=== PATIENT | female | born 1970 | race Caucasian/White ===

== ENCOUNTER → 2022-11-24 14:43 | Outpatient (BNVA) | payer OTHER, SELFPAY | PROVIDERS: PCP Internal Medicine; Visit Provider Urology | DX: Z13.89 Encounter for screening for other disorder (principal) ==

== ENCOUNTER 2023-02-26 08:26 | Day surgery (SDC) | payer OTHER, SELFPAY ==
[2023-02-26] VITALS (25 sets, daily range): BP systolic 92–133; BP diastolic 63–88; PULSE 45–79; RESP 14–20; TEMP 36.2–36.9; O2SAT 96–100; BMI 19.1
--- NOTE | ~2023-02-26 | FL_ITS ---
EXAMINATION: XR FLUOROSCOPY WITH IMAGES CLINICAL INFORMATION: Bilateral stones. COMPARISON: None available. TECHNIQUE: Fluoroscopy Supervised By: Dr. Romero. Fluoroscopy Time: 29.3 seconds. Cumulative Dose: 4.47 mGy. DAP: Gycm2. Images: 2. FINDINGS: Images from bilateral retrograde exam. Right renal collecting system is normal without hydronephrosis. There is a small filling defect seen in the right UPJ region. It is uncertain whether this represents a air bubble represent a stone. Images of the left renal collecting system demonstrate no calyceal dilatation. There may be mild left renal pelvis dilatation. FL/FL guidance in OR IMPRESSION: Fluoroscopy guidance for bilateral retrograde exam
[2023-02-26] MEDS: Lactated Ringers 1,000 ML 100 ML IVCONT (09:03)
--- NOTE | 2023-02-26 09:30 | P.HPSUR_ITS ---
Pre-Procedural Eval Section A Date of Service: 02/26/23 The patient is an INPATIENT: No Changes since office visit: No Cold of Flu in the past 2 weeks, No New Medical Problems, No Changes in Medication and No Patient answered all questions The History & Physical has been completed within 30 days and I have reviewed it.: No Section B Chief Complaint: Calculus of kidney Relevant Social History: None Present Medications: see Short Stay Collaborative assessment Medical History: Significant History History of Previous Operations: Relevant previous surgery/procedure and date(s) Allergies: Allergies Allergy/AdvReac Type Severity Reaction Status Date / Time metaxalone [From SKELAXIN] Allergy Intermediate CHEST Verified 02/22/23 11:10 TIGHTENING morphine [MORPHINE] Allergy Intermediate RASH,ITCHIN Verified 02/22/23 11:10 G NSAIDS (Non-Steroidal Allergy Intermediate ASTHMA Verified 02/22/23 11:10 Anti-Inflamma [NSAIDS (NON-STEROIDAL ANTI-INFLAMMA] Review of Systems Sugical H&P ROS: Negative: Constitution, Cardiovascular, Respiratory, Neurological, Psychiatric, Hem-Onc, Allergic/Immunologic, Gastrointestinal, Genitourinary, Musculoskeletal, Integumentary, Endocrine and Ey es/Ears/Nose/Throat Exam Surgical H&P Exam: Normal: HEENT, Normal: Heart, Normal: Lungs, Normal: Extremities, Normal: Abdomen, Normal: Skin and Normal: Neurological Plan Diagnosis/Plan: Unchanged (bilateral retrogrades, ureteroscopy, laser, stent) I have reviewed the history and physical and performed a pertinent physical examination on my patient. No changes have occurred unless specified. Time Spent With Patient Time: Total time managing care of this patient today ____ minutes.
[2023-02-26] MEDS: Scopolamine 1.5 MG PATCH.TD.3 EAR-BEHIND (09:42)
--- NOTE | 2023-02-26 09:44 | HO.ANESPROP2 ---
HPI - Anesthesia Eval Consult details Narrative: for cysto, retro, laser, stent. Bilat PMFSH Active Problems Active Problems: All Active Problems (Updated 02/26/23 @ 08:56 by Ria Estevez RN) Medullary sponge kidney (Acute) Past Medical History Medical History (Updated 02/26/23 @ 08:56 by Ria Estevez RN) Arrhythmia Frequent headaches History of kidney stones Loin pain hematuria syndrome Medullary sponge kidney Pulmonary embolism PVCs (premature ventricular contractions) Family History Family history of problems with anesthesia: No Surgical History Surgical History (Updated 02/22/23 @ 11:10 by Marisol Bueno RN) Hx of cystoscopy History of Problems with Anesthesia: Yes (PONV) Social History Social History Patient Tobacco Use Status: Never used Tobacco Use of substances other than those prescribed or required for medical reasons: No Are you DNR?: No Advance Directives: No Advance Directives Information Provided: Yes Meds Allergies Allergy/AdvReac Type Severity Reaction Status Date / Time metaxalone [From SKELAXIN] Allergy Intermediate CHEST Verified 02/22/23 11:10 TIGHTENING morphine [MORPHINE] Allergy Intermediate RASH,ITCHIN Verified 02/22/23 11:10 G NSAIDS (Non-Steroidal Allergy Intermediate ASTHMA Verified 02/22/23 11:10 Anti-Inflamma [NSAIDS (NON-STEROIDAL ANTI-INFLAMMA] Active Medications: Current Medications Lactated Ringer's (Lr) 1,000 mls @ 100 mls/hr IVCONT .Q10H LISA Last Admin: 02/26/23 09:03 Dose: 100 mls/hr Home Medications Medication Instructions Recorded Confirmed Last Taken Type clonazepam 1 mg tablet 1 mg PO BEDTIME PRN Anxiety 11/24/22 02/22/23 Unknown History estradiol 0.01% (0.1 mg/gram) 1 g vaginal 2XW 11/24/22 02/22/23 Unknown History vaginal cream oxycodone 10 mg tablet 10 mg PO PRN Pain 11/24/22 02/26/23 05:00 History sodium citrate-citric acid 490 ml PO 11/24/22 Unknown History mg-640 mg/5 mL oral solution (Oracit) ondansetron HCl 4 mg tablet 4 mg PO Q12H PRN nausea 02/26/23 02/26/23 Unknown History Exam Exam Date and Time: February 26, 2023 0944 Height,Weight and Vital Signs: Height 5 ft 6 in Weight 53.751 kg Last Vital Signs Temp 98.4 F 02/26/23 08:46 Pulse 79 02/26/23 08:46 Resp 16 02/26/23 08:46 BP 125/88 02/26/23 08:46 Pulse Ox 97 02/26/23 08:46 O2 Del Method Room Air 02/26/23 08:46 Airway Mallampati Class: I TM Dist: >3cm Neck ROM: Full Loose/Missing/Broken Teeth: No Heart: ok Lungs: ok Assessment and Plan Assessment Anesthesia Assessment: Anesthesia Plan Discussed (Scope patch added.) and Chart Reviewed Final Anesthetic Review Family History of Problems with Anesthesia: No History of Problems with Anesthesia: Yes (PONV) NPO: Yes ASA Class: II Final Preanesthetic Review: No Changes in Pt Med Stat, Meds/Allgs Chart Reviewed, Consent Obtained/Reviewed and Anes Risks/Benef Reviewed Patient Risk: Low Procedure Risk: Low Anesthetic Plan Anesthetic Plan: GA and Agree w/ Assess. and Plan Disposition: Standard PACU
--- NOTE | 2023-02-26 11:06 | W.PM.OPN ---
Operative Note Operative Note Date of Service: 02/26/23 Narrative: PreOperative Diagnosis: Bilateral renal stones in setting of Medullary sponge kidney Post Operative Diagnosis: Bilateral renal stones in the setting of Medullary sponge kidney Procedure: - cystoscopy, left retrograde - left dilatation of ureteric orifice under fluoroscopy - left ureteroscopy, laser lithotripsy - cystoscopy, right retrograde - right dilatation of ureteric orifice under fluoroscopy - right ureteroscopy, right lithotripsy, stone basketing Surgeon: Dr Noel Romero Anesthesia: General Indications for procedure: Medullary sponge kidney with bilateral renal stones on imaging. Prior procedures Procedure: After informed consent was verified patient was brought to the operating placed in supine position. Anesthesia was administered per protocol. Patient was placed in modified dorsal lithotomy position and prepped and draped in a sterile fashion. Safety pause time-out and side of surgery confirmed. Antibiotics confirmed. 22 Japanese cystoscope was inserted per urethra. Bladder was normal in its entirety. Both ureteric orifices were in normal position. The left ureteric orifice was cannulated and a retrograde examination was performed. No filling defects seen. A Sensor guidewire was placed up to the level of the renal pelvis under fluoroscopy. The rigid cystoscope was removed and the Sherri dilator was used under fluoroscopy to dilate the ureteric orifice The digital flexible ureteral scope was placed over the wire. The entirety of the left renal pelvis was examined. Submucosal stones present throughout every calyx of the kidney. Lasering was performed. There were 3 calices that had large stones associated with them and these were broken into small pieces. At the completion of the stone procedure a Sensor wire was placed back into the renal pelvis. The flexible ureteral scope was removed. An open-ended catheter was placed. The kidney was irrigated. 22 Japanese cystoscope was inserted per urethra. The right ureteric orifice was cannulated and a retrograde examination was performed. No filling defects seen. A Sensor guidewire was placed up to the level of the renal pelvis under fluoroscopy. The rigid cystoscope was removed and the Sherri dilator was used under fluoroscopy to dilate the ureteric orifice The digital flexible ureteral scope was placed over the wire. The entirety of the right renal pelvis was examined. Submucosal stones present throughout every calyx of the kidney. Lasering was performed. In the lower pole a larger stone was seen. Using the ZeroTip basket the stone was grasped at the completion of the procedure and removed along with the flexible ureteral scope. The bladder was emptied. The patient tolerated the procedure well and was extubated in the operating room, and transferred in stable condition to the recovery area. Pathology: renal stones Drains:
[2023-02-26] MEDS: fentaNYL 25 MCG PATCH.TD72 TRANSDERMA (11:29)
[2023-02-26] MEDS: Phenazopyridine HCL 100 MG TABLET PO (11:37)
[2023-02-26] MEDS: oxyCODONE HCl Immed Release 5 MG TABLET PO (11:40)
[2023-02-26] MEDS: fentaNYL citrate/PF 100 MCG/2 ML VIAL 50 MCG IVPUSH (11:44)
[2023-02-26] MEDS: HYDROmorphone HCl 1 MG/ML SYRINGE IVPUSH ×2 (12:14→12:19)
[2023-02-26] MEDS: ondansetron HCL 4 MG/2 ML VIAL IVPUSH (14:24)
--- NOTE | 2023-02-26 14:27 | PC.NURSE ---
PT PALE AND STATES FLANK PAIN 10/10, NAUSEOUS. 86/45, HR 50. ANESTHESIOLOGIST RE=ASSESSED PATIENT AND PATIENT BROUGHT BACK TO PACU. DR. PAEZ TALKED TO PATIENT'S DAUGHTER.
[2023-02-26] MEDS: diazePAM 5 MG TABLET PO (15:04)
[2023-02-26] MEDS: oxyBUTYnin chloride ER 5 MG TAB.ER.24 10 MG PO (15:13)
[2023-03-02 19:34] LABS: Stone Source KIDNEY STONE
== END 2023-02-26 16:06 | disposition home or self-care (01) ==
PROVIDERS: PCP Internal Medicine; Visit Provider Urology
PROC: (CPT 52356; principal; 2023-02-26 10:20)
DX: N20.0 Calculus of kidney (principal); Q61.5 Medullary cystic kidney; Z87.442 Personal history of urinary calculi; Z79.899 Other long term (current) drug therapy; Z88.8 Allergy status to other drugs, medicaments and biological substances
CPT/HCPCS: 52356; 52352; 82365; 88300; C1758; C1769; J1100; J1170; J1956; J2250; J2405; J2550; J2765; J3010; Q9967

== ENCOUNTER → 2023-02-26 08:26 | Outpatient (BNV) | payer OTHER, SELFPAY | PROVIDERS: PCP Internal Medicine; Visit Provider Urology | DX: N20.0 Calculus of kidney (principal); N29 Other disorders of kidney and ureter in diseases classified elsewhere | CPT/HCPCS: 52353 ==

== ENCOUNTER 2023-03-08 11:01 | Outpatient (AMB) | payer OTHER, SELFPAY ==
--- NOTE | 2023-03-08 11:21 | A.OFFVIS_ITS ---
Intake Intake Visit Reasons: one week follow up Intake Note: Patient is present for Follow Up Urology Med: Tamsulosin, Estradiol Antibiotic Allergy:none Blood Thinner: None Pharmacy: [facility] Allergies metaxalone [From SKELAXIN] Allergy (Intermediate, Verified 02/22/23 11:10) CHEST TIGHTENING morphine [MORPHINE] Allergy (Intermediate, Verified 02/22/23 11:10) RASH,ITCHING NSAIDS (Non-Steroidal Anti-Inflamma [NSAIDS (NON-STEROIDAL ANTI-INFLAMMA] Allergy (Intermediate, Verified 02/22/23 11:10) ASTHMA HPI HPI Comments History of Present Illness Details Ally is a pleasant female. She is a patient of Dr. Caputo. She is seen for following urologic conditions. Field Tax Auditor is Angelia Guidry. - Medullary sponge kidney Dr. Guidry is retiring. Changing water treatment operator to Dr. Mendoza Procedure confirmed combination carbonate apatite with calcium oxalate stone Likely apatite formed as urine was alkalnysed with citrate Litholink to be performed Will need to concentrate on reducing urinary calcium Medullary Sponge Kidney Longstanding Background of topiramate for migraine control Multiple prior procedures Prior 24 hour urine Has tailored citrate to pH 6.5 Recent ultrasound with bilateral stones Vitamin-D deficient with osteopenia Twenty four urine PFSH Medical History (Updated 02/26/23 @ 08:56 by Ria Estevez RN) Arrhythmia Frequent headaches History of kidney stones Loin pain hematuria syndrome Medullary sponge kidney Pulmonary embolism PVCs (premature ventricular contractions) Surgical History (Updated 02/22/23 @ 11:10 by Marisol Bueno RN) Hx of cystoscopy Social History Patient Tobacco Use Status: Never used Tobacco Review of Systems Const Denies chills and Denies fever(s) Card Reports no additional complaints and Denies syncope Resp Denies cough GI Denies abdominal pain and Denies heartburn Reports as per HPI and Denies change in libido Neuro Denies syncope Psych Denies change in libido Endo Denies change in libido Physical Exam Const General: cooperative, healthy appearing, comfortable and no acute distress Orientation/consciousness: patient oriented x3 HEENT Face and sinus: Yes normal facial exam Mouth: moist mucous membranes Neck Neck: Yes normal visual inspection, Yes full ROM and Yes trachea midline Chest Chest palpation & inspection: normal inspection of the chest Resp Effort & Inspection: normal respiratory effort, able to speak in complete sentences and no respiratory distress GI Inspection: Yes normal to inspection Back/Spine/Pelvis Cervical Spine: normal cervical lordosis Thoracic/Lumbar Spine: thoracic and lumbar spine normal to inspection Skin General skin exam: no rashes or lesions noted Neuro General: patient oriented x3, gait normal, tone normal and moves all extremities Extrem General: Yes normal to inspection and Yes capillary refill normal Assessment & Plan Assessment & Plan (1) Medullary sponge kidney: Code(s): Q61.5 - Medullary cystic kidney Plan Litholink with 4 week follow-up Patient Instructions: Imaging studies, laboratory and physical exam results were discussed and reviewed in detail. No major barriers to patient understanding were identified. An opportunity to ask questions regarding the treatment plan was provided. All questions were answered. The patient expressed understanding and agreement with the above treatment plan. The patient is aware they should contact our office by phone for worsening of their current condition or the appearance of new urologic symptoms. Compliance is encouraged with any medications and followup testing that is ordered. It is a privilege to participate in the urologic care of your patient. If you have any questions or concerns regarding treatment for the above conditions, or other urologic issues, please do not hesitate to contact me. The office telephone contact is [phone]. This note is constructed using voice recognition software. While every effort has been made to ensure accuracy sporting goods sales associate errors may have been included. Yours sincerely, Dr Noel Romero MD, [facility] - Urology Providers of Expert, Compassionate Care for the Genitourinary System Coding Level of Care Code Est Pt Level 4 (75108) Diagnoses Medullary sponge kidney Q61.5
== END 2023-03-08 12:10 | disposition home or self-care (01) ==
PROVIDERS: PCP Internal Medicine; Visit Provider Urology
DX: Q61.5 Medullary cystic kidney (principal)
CPT/HCPCS: 99213

== ENCOUNTER → 2023-03-08 11:01 | Outpatient (BNVA) | payer OTHER, SELFPAY | PROVIDERS: PCP Internal Medicine; Visit Provider Urology ==

== ENCOUNTER 2023-04-04 10:09 | Outpatient (AMB) | payer OTHER, SELFPAY ==
--- NOTE | 2023-04-04 10:13 | MHC.OFFVIS ---
Intake Intake Visit Reasons: 1m/litholink Intake Note: Patient is present for Follow Up litholink 24 hour Urology Med: Estradiol, Tamsulosin Antibiotic Allergy: none Blood Thinner: None [facility] Allergies metaxalone [From SKELAXIN] Allergy (Intermediate, Verified 04/04/23 10:15) CHEST TIGHTENING morphine [MORPHINE] Allergy (Intermediate, Verified 04/04/23 10:15) RASH,ITCHING NSAIDS (Non-Steroidal Anti-Inflamma [NSAIDS (NON-STEROIDAL ANTI-INFLAMMA] Allergy (Intermediate, Verified 04/04/23 10:15) ASTHMA HPI HPI Comments History of Present Illness Details Ally is a pleasant female. She is a patient of Dr. Caputo. She is seen for following urologic conditions. Instrumentation Fitter is Dr. Guidry. - Medullary sponge kidney 24 hour urine results - good volume 3 L, calcium 117, high oxalate 46, borderline citrate 520, elevated sodium 174 Sodium reduction and oxalate information provided Ultrasound tele visit [address] Guidry is retiring. Changing logging supervisor to Dr. Mendoza Medullary Sponge Kidney Longstanding Background of topiramate for migraine control Multiple prior procedures Prior 24 hour urine Has tailored citrate to pH 6.5 Recent ultrasound with bilateral stones Vitamin-D deficient with osteopenia Intervention - 04/04 bilateral ureteroscopy - Procedure confirmed combination carbonate apatite with calcium oxalate stone PFSH Medical History Arrhythmia Frequent headaches History of kidney stones Loin pain hematuria syndrome Medullary sponge kidney Pulmonary embolism PVCs (premature ventricular contractions) Surgical History Hx of cystoscopy Social History Patient Tobacco Use Status: Never used Tobacco Review of Systems Const Denies chills and Denies fever(s) Card Reports no additional complaints and Denies syncope Resp Denies cough GI Denies abdominal pain and Denies heartburn Reports as per HPI and Denies change in libido Neuro Denies syncope Psych Denies change in libido Endo Denies change in libido Physical Exam Const General: cooperative, healthy appearing, comfortable and no acute distress Orientation/consciousness: patient oriented x3 HEENT Face and sinus: Yes normal facial exam Mouth: moist mucous membranes Neck Neck: Yes normal visual inspection, Yes full ROM and Yes trachea midline Chest Chest palpation & inspection: normal inspection of the chest Resp Effort & Inspection: normal respiratory effort, able to speak in complete sentences and no respiratory distress GI Inspection: Yes normal to inspection Back/Spine/Pelvis Cervical Spine: normal cervical lordosis Thoracic/Lumbar Spine: thoracic and lumbar spine normal to inspection Skin General skin exam: no rashes or lesions noted Neuro General: patient oriented x3, gait normal, tone normal and moves all extremities Extrem General: Yes normal to inspection and Yes capillary refill normal Assessment & Plan Assessment & Plan (1) Medullary sponge kidney: Code(s): Q61.5 - Medullary cystic kidney Plan Dietary adjustments Follow-up ultrasound Orders: Orders US renal BI 6 Months Q61.5 - Medullary cystic kidney Patient Instructions: Imaging studies, laboratory and physical exam results were discussed and reviewed in detail. No major barriers to patient understanding were identified. An opportunity to ask questions regarding the treatment plan was provided. All questions were answered. The patient expressed understanding and agreement with the above treatment plan. The patient is aware they should contact our office by phone for worsening of their current condition or the appearance of new urologic symptoms. Compliance is encouraged with any medications and followup testing that is ordered. It is a privilege to participate in the urologic care of your patient. If you have any questions or concerns regarding treatment for the above conditions, or other urologic issues, please do not hesitate to contact me. The office telephone contact is [phone]. This note is constructed using voice recognition software. While every effort has been made to ensure accuracy medical records secretary errors may have been included. Yours sincerely, Dr Noel Romero MD, [facility] - Urology Providers of Expert, Compassionate Care for the Genitourinary System Coding Level of Care Code Est Pt Level 3 (38309) Diagnoses Medullary sponge kidney Q61.5
== END 2023-04-04 11:03 | disposition home or self-care (01) ==
PROVIDERS: PCP Internal Medicine; Visit Provider Urology
DX: Q61.5 Medullary cystic kidney (principal)
CPT/HCPCS: 99213

== ENCOUNTER → 2023-04-04 10:09 | Outpatient (BNVA) | payer OTHER, SELFPAY | PROVIDERS: PCP Internal Medicine; Visit Provider Urology ==

== ENCOUNTER 2025-05-29 09:37 | Outpatient (AMB) | payer OTHER, SELFPAY ==
--- OUTSIDE RECORDS SUMMARY | 2025-05-28 16:00 | XMS_ITS | Encounter Summary ---
Author Organization [facility], Address [address] [facility] [address] [place] [address] Phone Care Team Providers Care Ice Seller Name Role Phone Yasir Abel Primary Care Provider [phone] Reason for Referral * (Routine) - Incomplete Specialty Diagnoses / Procedures Referred By Danya klein Referred To Contact Diagnoses Nephrolithiasis Medullary sponge kidney Procedures Litholink Requisition Yovani Aranda DO [address] [place] [address] Phone: tel: fax: Referral ID Status Reason Start Date Expiration Date V isits Requested Visits Authorized [id number] Incomplete 05/28/2025 05/28/2026 1 1 * Consultation (Routine) - Pending Review Specialty Diagnoses / Procedures Referred By Danya klein Referred To Contact Pain Medicine Diagnoses Nephrolithiasis Medullary sponge kidney Yovani Aranda DO [address] [place] [address] Phone: tel: fax: Referral ID Status Reason Start Date Expiration Date Visits Requested Visits Authorized [id number] Pending Review Specialty Services Required 05/28/2026 1 1 Encounter Details Date Type Department Care Team (Latest Contact Info) Description 05/28/2025 4:00 PM EDT Office Visit [facility], [address] [place] [address] Yovani Aranda, [address] [place] [address] Nephrolithiasis (Primary Dx); Medullary sponge kidney Social History Tobacco Use Types Packs/Day Years Used Date Smoking Tobacco: Never Alcohol Use Standard Drinks/Week Comments No 0 (1 standard drink = 0.6 oz pur e alcohol) Comments Unknown Sex and Gender Information Value Date Recorded Sex Assigned at Not on file Legal Sex Female 4:37 PM EST Gender Identity Not on file Sexual Orientation Not on file documented as of this encounter Last Filed Vital Signs Vital Sign Reading Time Taken Comments Blood Pressure 128/80 05/28/2025 4:48 PM EDT Pulse 74 05/28/2025 4:48 PM EDT Temperature - - Respiratory Rate - - Oxygen Saturation - - Inhaled Oxygen Concentration - - Weight - - Height - - Body Mass Index - - documented in this encounter Progress Notes * Yovani Aranda, - 05/28/2025 4:00 PM EDT Images from the original note were not included. PATIENT: Ally Tello : 1970 ENCOUNTER: 05/28/2025 PCP: Yasir Abel HPI: Ally Tello is a 54 y.o. year old female with a history of medullary sponge kidney with recurrent kidney stones over the last 5 to 7 years who came to the office today for follow-up after transitioning her care from my retired partner Martinez Guidry. She underwent bilateral stone extraction withDr. Espino in [place] over the summer and has since had a 24-hour Litholink study performed showing excellent urinary volumes of about 3 L/day with urine pH is 7.1, mildly elevated urinary oxalate is and urine sodium. She is already cut back on salt in her diet and is also scaling back on high oxalate consuming foods. Her most recent stone analysis showed calcium oxalate dihydrate and carbonate appetite crystals. In the past she has had calcium phosphate stones. Prior testing is appear to be negative for hyperparathyroidism. She reports passing some stonelike debris typically every few weeks more recently just some gravel since her urologic procedure. She suffers from chronic flank pain right greater than left and the topic of autotransplantation is even been discussed. She is on narcotic contract with primary care provider at [facility] and Dr. Guidry has tried some nonnarcotic options as well in the past. Right now she is not taking any medication and is pain-free. Renal function levels of. Refilling normal range around 0.9-1.1 mg/dL. Ally returns to the office today with her daughter for routine follow-up. She reports ongoing issues related to chronic pain that she feels is associated with her chronic kidney stone history. She reports passing gravel like material routinely and had ultrasound imaging done showing nonobstructing bilateral nephrolithiasis within the last few months. Her last 24-hour urine collection performed in the middle of 2023 by [facility] did show ongoing hypocitraturia. She has had difficulty tolerating potassium citrate and we could not get her sodium citrate so she did not try to do this from a dietary perspective. She drinks a lot of fluids and is very frustrated with the ongoing issue of stone passage and the fact that she is battling with chronic pain and fatigue. She reports the need to take Zofran routinely for nausea and anticipation of stone related symptoms. I did offer and recommend that we send her to pain management today and she is agreeable to this. ROS: Constitutional: No fever. Respiratory: No shortness of breath. Cardiovascular: No chest pain. Gastrointestinal: No abdominal pain, nausea or vomiting. Genitourinary: No hematuria. All other systems reviewed and are negative. PAST MEDICAL HISTORY: Patient Active Problem List Diagnosis Date Noted Other iron deficiency anemia 05/23/2022 Chronic kidney disease, stage 2 (mild) 08/19/2021 COVID-19 07/25/2021 Hypercalciuria Iron deficiency anemia Loin pain-hematuria syndrome Medullary sponge kidney Nephrolithiasis PAST SURGICAL HISTORY: Past Surgical History: Procedure Laterality Date OTHER SURGICAL HISTORY Bilateral urteroscopy SOCIAL HISTORY: Social History Tobacco Use Smoking status: Never Smokeless tobacco: Not on file Substance Use Topics Alcohol use: No FAMILY HISTORY: Family History Problem Relation Age of Onset Coronary artery disease Father and resp arrest Prostate cancer Father Coronary artery disease Mother Hypertension Father Heart disease Father Cancer Father prostate MEDICATIONS: Outpatient Encounter Medications as of 05/28/2025 Medication Sig Dispense Refill Aimovig 70 MG/ML solution auto-injector INJECT 70 MG UNDER THE SKIN EVERY 30 (THIRTY) DAYS 1 pen 3 clonazePAM (KlonoPIN) 0.25 MG dispersible tablet Take 0.25 mg by mouth at night if needed clonazePAM (KlonoPIN) 1 MG tablet Take 0.5 tablets by mouth 2 (two) times a day ondansetron (ZOFRAN) 4 MG tablet Take 4 mg by mouth every 12 (twelve) hours if needed propranolol (INDERAL) 40 MG tablet Take 20 mg by mouth in the morning and 20 mg in the evening. Rimegepant Sulfate 75 MG tablet dispersible Take 75 mg by mouth every other day 45 tablet 3 Sod Citrate-Citric Acid (Oracit) 490-640 MG/5ML solution Take 15 mL by mouth 2 (two) times a day 1800 mL 0 Ubrogepant (Ubrelvy) 50 MG tablet Take 50 mg by mouth 1 (one) time daily 30 minutes before a meal 30 tablet 5 Facility-Administered Encounter Medications as of 05/28/2025 Medication Dose Route Frequency Provider Last Rate Last Admin iron sucrose (VENOFER) injection 200 mg 200 mg Intravenous Once PRN Conor Guidry MD MEDICATION REVIEW: I have reviewed the patient's current medications. ALLERGIES: is allergic to venlafaxine, morphine, metaxalone, nsaids, and terconazole. PHYSICAL EXAM: BP 128/80 Pulse 74 Constitutional: No apparent distress Cardiovascular: No friction rub. Pulmonary/Chest: No rales. Abdominal: Soft and non-tender. Extremities: Edema None LABS: Chemistry Lab Units 04/07/25 1009 10/01/24 0936 07/26/23 1351 CREATININE mg/dL 1.14* 1.03 0.9 BUN mg/dL 12 13 15 POTASSIUM mmol/L 4.2 4.3 4.4 SODIUM mmol/L 139 141 141 CO2 mmol/L 29 32 29 CHLORIDE mmol/L 106 104 103 ALBUMIN g/dL 4.1 4.1 4.8 EGFRNAFR ML/MIN/1.73 M2 -- -- 77 Bone Mineral Lab Units 04/07/25 1009 10/01/24 0936 07/26/23 1351 CALCIUM mg/dL 9.3 9.3 9.9 PHOSPHORUS MG/DL -- -- 3.3 ALK PHOS unit/L 71 80 -- PTH PG/ML -- -- 50 VITAMIN D NG/ML -- -- 20.4 LABORATORY REVIEW: I have reviewed the labs noted above as well as in the chart, in [facility] and in Care Everywhere. DOCUMENTATION REVIEW: I have reviewed the applicable outside notes located in the chart, in [facility] and in Care Everywhere. ASSESSMENT: 1. Nephrolithiasis 2. Medullary sponge kidney 1. Medullary Sponge kidney with recurrent nephrolithiasis over the last 5 to 7 years -Recent stone extraction bilateral Dr. Romero in [place] and the patient is feeling well without symptoms of stone disease since before the pandemic she describes. -Most recent stone analysis showing calcium oxalate crystals although prior analyses years ago showed calcium phosphate stones -Most recent 24-hour Litholink study performed this summer excellent urine volume with a mildly elevated urine pH and adequate urinary citrate levels. There is no hypercalciuria noted but oxalate levels and sodium levels were mildly elevated. -She has had difficulty tolerating potassium citrate in the past so going to try putting her back on 10 mEq 3 times daily with the addition of pantoprazole 20 mg daily that she can take as needed. Myhope is that the latter will allow her to tolerate the potassium citrate better. There are no othergreat offerings out there or these days in terms of citrate supplementation otherwise with the excep tion of dietary maneuvers which she has been doing for quite some time. - Given her chronic back pain and generalized fatigue with episodes related to nausea, she is agreeable to see a machine paint mixer and I will send that referral today - As she also is in the midst of primary care physicians changeover, I told her I would be willing to temporarily fill out paperwork for FMLA until she has her new physician at the primary care office. - I will also arrange for a 24-hour Litholink to be done prior to her follow-up in 6 months time. -We will continue to have her manage high volume diet with low sodium and low animal fat. She will also keep a close eye on a low oxalate diet. Addition of calcium to the diet to help bind dietary oxalate could be considered but I think it is best to hold off on that right now, particularly with some borderline serum calcium levels. -Her chronic back pain which has been labile at times to be loin pain hematuria syndrome is likely related to her chronic recurrent stone disease state and is presently managed without symptoms by reduction of stone burden. Thank you for allowing me to participate in Ally's care. With your permission I will see her back in the office in about 6 months. No orders of the defined types were placed in this encounter. documented in this encounter Plan of Treatment Scheduled Orders Name Type Priority Associated Diagnoses Orde r Schedule Litholink Requisition Lab Routine Nephrolithiasis Medullary sponge kidney Expected: 05/28/2025, Expires: 06/28/2026 Scheduled Referrals Name Type Priority Associated Diagnoses Order Schedule Ambulatory referral to Pain Medicine Outpatient Referral Routine Nephrolithiasis Medullary sponge kidney Expected: 05/28/2025, Expires: 06/28/2026 documented as of this encounter Visit Diagnoses Diagnosis Nephrolithiasis- Primary Medullary sponge kidney documented in this encounter Care Teams Ice Seller Relationship Specialty Start Date End Date [employer] [address] [place] [address] PCP - General Internal Medicine 08/22/21 documented as of this encounter
--- NOTE | 2025-05-29 09:49 | A.OFFVIS_ITS ---
Intake Visit Reasons: calculus of kidney/bladder issues(seen 2022) Intake Note: Patient is present for calculus of kidney/bladder issues Urology Med: Estradiol, Tamsulosin Blood Thinner: None Client Relations Specialist Required: No Accompanied by: Daughter Allergies metaxalone (From SKELAXIN) Allergy (Intermediate, Verified 05/29/25 09:50) CHEST TIGHTENING morphine (MORPHINE) Allergy (Intermediate, Verified 05/29/25 09:50) RASH,ITCHING NSAIDS (Non-Steroidal Anti-Inflamma (NSAIDS (NON-STEROIDAL ANTI-INFLAMMA) Allergy (Intermediate, Verified 05/29/25 09:50) ASTHMA HPI Comments Details: Ally is a pleasant female. She is a patient of Dr. Caputo. She is seen for following urologic conditions. Senior Mechanical Project Manager is Dr. Guidry. - Medullary sponge kidney Last seen 18 months ago Recurrent stones on ultrasound Ally last 24 hour urine did show low citrate Previously has not tolerated potassium citrate and a variety of different forms Discussed use of lemon juice to elevate citrate Needs CT KUB to further define stone burden Medullary Sponge Kidney Longstanding Background of topiramate for migraine control Multiple prior procedures Prior 24 hour urine Has tailored citrate to pH 6.5 Recent ultrasound with bilateral stones 24 hour urine results - good volume 3 L, calcium 117, high oxalate 46, borderline citrate 520, elevated sodium 174 Sodium reduction and oxalate information provided Vitamin-D deficient with osteopenia - might benefit from testosterone Intervention - 04/04 bilateral ureteroscopy - Procedure confirmed combination carbonate apatite with calcium oxalate stone PFSH Medical History Arrhythmia Frequent headaches History of kidney stones Loin pain hematuria syndrome Medullary sponge kidney Pulmonary embolism PVCs (premature ventricular contractions) Surgical History Hx of cystoscopy Social History Patient Tobacco Use Status: Never used Tobacco Review of Systems Const Denies chills and Denies fever(s) Card Reports no additional complaints and Denies syncope Resp Denies cough GI Denies abdominal pain and Denies heartburn Reports as per HPI and Denies change in libido Neuro Denies syncope Psych Denies change in libido Endo Denies change in libido Physical Exam Const General: cooperative, healthy appearing, comfortable and no acute distress Orientation/consciousness: patient oriented x3 HEENT Face and sinus: Yes normal facial exam Mouth: moist mucous membranes Neck Neck: Yes normal visual inspection, Yes full ROM and Yes trachea midline Chest Chest palpation & inspection: normal inspection of the chest Resp Effort & Inspection: normal respiratory effort, able to speak in complete sentences and no respiratory distress GI Inspection: Yes normal to inspection Back/Spine/Pelvis Cervical Spine: normal cervical lordosis Thoracic/Lumbar Spine: thoracic and lumbar spine normal to inspection Skin General skin exam: no rashes or lesions noted Neuro General: patient oriented x3, gait normal, tone normal and moves all extremities Extrem General: Yes normal to inspection and Yes capillary refill normal Results AMB Urinalysis, Automated UA Leukoctes 70 Chapito/uL Last Edit by MELIDA Maria on 05/29/25 12:10 UA Nitrite Last Edit by MELIDA Maria on 05/29/25 12:10 UA Urobilinogen 0.2 mg/dL Last Edit by MELIDA Maria on 05/29/25 12:1 0 UA Protein 0 mg/dL Last Edit by MELIDA Maria on 05/29/25 12:10 UA pH 6.5 Last Edit by MELIDA Maria on 05/29/25 12:10 UA Blood 10 Rodger/uL Last Edit by MELIDA Maria on 05/29/25 12:10 UA Specific Lindsay 1.000 Last Edit by MELIDA Maria on 05/29/25 12: 10 UA Ketone Last Edit by MELIDA Maria on 05/29/25 12:10 UA Bilirubin 0 mg/dL Last Edit by MELIDA Maria on 05/29/25 12:10 UA Glucose 0 mg/dL Last Edit by MELIDA Maria on 05/29/25 12:10 Results Reviewed Results Reviewed: Laboratory Last Values Urine pH (Auto) 6.5 05/29/25 12:09 Specific Lindsay (Auto) 1.000 05/29/25 12:09 Urine Protein (Auto) 0 mg/dL 05/29/25 12:09 Glucose (UA)(Auto) 0 mg/dL 05/29/25 12:09 Urine Blood (Auto) 10 Rodger/uL 05/29/25 12:09 Urine Bilirubin (Auto) 0 mg/dL 05/29/25 12:09 Urine Urobilinogen (Auto) 0.2 mg/dL 05/29/25 12:09 Leukocyte Esterase (Auto) 70 Chapito/uL 05/29/25 12:09 Assessment & Plan Assessment & Plan (1) Medullary sponge kidney: Code(s): Q61.5 - Medullary cystic kidney Category: Medical Plan CT KUB Orders: Orders AMB Urinalysis Automated Today Z13.9 - Encounter for screening, unspecified CT kidney stone Today Q61.5 - Medullary cystic kidney Patient Instructions: This note is constructed using voice recognition software. While every effort has been made to ensure accuracy computer help desk specialist errors may have been included. Imaging studies, laboratory and physical exam results were discussed and reviewed in detail. No major barriers to patient understanding were identified. An opportunity to ask questions regarding the treatment plan was provided. All questions were answered. The patient expressed understanding and agreement with the above treatment plan. The patient is aware they should contact our office by phone for worsening of their current condition or the appearance of new urologic symptoms. Compliance is encouraged with any medications and followup testing that is ordered. It is a privilege to participate in the urologic care of your patient. If you have any questions or concerns regarding treatment for the above conditions, or other urologic issues, please do not hesitate to contact me. The office telephone contact is [phone]. Sincerely, Dr Noel Romero MD, [facility] - Urology Compassionate Specialist Care for the Genitourinary System Coding Level of Care Code Est Pt Level 4 (13673) Complex EM visit Add On G2211 Diagnoses Medullary sponge kidney Q61.5
--- OUTSIDE RECORDS SUMMARY | 2025-05-29 11:02 | XMS_ITS | Encounter Summary ---
Author Organization [facility], Address [address] [place] [address] Phone Care Team Providers Care Grain Unloader Name Role Phone Yasir Abel Primary Care Provider [phone] Encounter Details Date Type Department Care Team (Late st Contact Info) Description 09/05/2021 Documentation Only [facility], [address] [place] [address] Demetrice Caldwell [address] [place] [address] Social History Tobacco Use Types Packs/Day Years [...] on file documented as of this encounter Plan of Treatment Not on file documented as of this encounter Visit Diagnoses Not on filedocumented in this encounter Care Teams Grain Unloader Relationship Specialty Start Date End Date Yasir Abel [address] [place] [id number] PCP - General Internal Medicine 08/22/21 documented as of this encounter
--- OUTSIDE RECORDS SUMMARY | 2025-05-29 11:02 | XMS_ITS | Encounter Summary ---
Author Organization [facility], Address [address] [place] [address] Phone Care Team Providers Care Office Auditor Name Role Phone Yasir Abel Primary Care Provider [phone] Encounter Details Date Type Department Care Team (Late st Contact Info) Description 03/17/2024 Documentation Only [facility], [address] [place] [address] eDmetrice Caldwell [address] [place] [address] Social History Tobacco Use Types [...] on filedocumented in this encounter Care Teams Office Auditor Relationship Specialty Start Date End Date Yasir Abel [address] [place] [address] PCP - General Internal Medicine 08/22/21 documented as of this encounter
--- OUTSIDE RECORDS SUMMARY | 2025-05-29 11:02 | XMS_ITS | Encounter Summary ---
Author Organization [facility], Address [address] [place] [address] Phone Care Team Providers Care Senior Payroll Manager Name Role Phone Yasir Abel Primary Care Provider [phone] Encounter Details Date Type Department Care Team (Late st Contact Info) Description 12/22/2021 Documentation Only [facility], [address] [place] [address] Demetrice Caldwell [address] [place] [address] Social History Tobacco Use Types [...] on filedocumented in this encounter Care Teams Senior Payroll Manager Relationship Specialty Start Date End Date Yasir Abel [address] [place] [address] PCP - General Internal Medicine 08/22/21 documented as of this encounter
--- OUTSIDE RECORDS SUMMARY | 2025-05-29 11:02 | XMS_ITS | Encounter Summary ---
Author Organization [facility], Address [address] [place] [address] Phone Care Team Providers Care Commercial Loan Closer Name Role Phone Yasir Abel Primary Care Provider [phone] Encounter Details Date Type Department Care Team (Late st Contact Info) Description 12/22/2021 Documentation Only [facility], [address] [place] [address] Demetrice Caldwell [address] [place] [address] Social History Tobacco Use Types [...] on filedocumented in this encounter Care Teams Commercial Loan Closer Relationship Specialty Start Date End Date Yasir Abel [address] [place] [phone] PCP - General Internal Medicine 08/22/21 documented as of this encounter
--- OUTSIDE RECORDS SUMMARY | 2025-05-29 11:02 | XMS_ITS | Encounter Summary ---
Author Organization [facility], Address [address] [place] [address] Phone Care Team Providers Care Linen Tech Name Role Phone Yasir Abel Primary Care Provider [phone] Encounter Details Date Type Department Care Team (Late st Contact Info) Description 04/26/2023 Documentation Only [facility], [address] [place] [address] Yovani Aranda DO [address] [place] [address] Social History Tobacco Use Types Packs/Day Years [...] on filedocumented in this encounter Care Teams Linen Tech Relationship Specialty Start Date End Date Yasir Abel [address] [place] [address] PCP - General Internal Medicine 08/22/21 documented as of this encounter
--- OUTSIDE RECORDS SUMMARY | 2025-05-29 11:02 | XMS_ITS | Encounter Summary ---
Author Organization [facility], Address [address] [place] [address] Phone Care Team Providers Care Infectious Disease Physician Name Role Phone Yasir Abel Primary Care Provider [phone] Encounter Details Date Type Department Care Team (Late st Contact Info) Description 11/14/2021 Documentation Only [facility], [address] [place] [address] Demetrice Caldwell [address] [place] [address] Social History Tobacco Use Types [...] on filedocumented in this encounter Care Teams Infectious Disease Physician Relationship Specialty Start Date End Date Yasir Abel [address] [place] [address] PCP - General Internal Medicine 08/22/21 documented as of this encounter
--- OUTSIDE RECORDS SUMMARY | 2025-05-29 11:02 | XMS_ITS | Encounter Summary ---
Author Organization [facility], Address [address] [place] [address] Phone Care Team Providers Care Inspector And Mender Name Role Phone Yasir Abel Primary Care Provider [phone] Encounter Details Date Type Department Care Team (Late st Contact Info) Description 08/19/2021 Documentation Only [facility], [address] [place] [place] [address] Demetrice Caldwell [address] [place] [address] Social History Tobacco Use Types [...] on filedocumented in this encounter Care Teams Inspector And Mender Relationship Specialty Start Date End Date Yasir Abel [address] [place] [address] PCP - General Internal Medicine 08/22/21 documented as of this encounter
--- OUTSIDE RECORDS SUMMARY | 2025-05-29 11:02 | XMS_ITS | Clinical Summary ---
Author Organization [facility] Address [address] [address] Phone Care Team Providers Care Dirt Supervisor Name Role Phone Tati Pedroza MD Primary Care Provider Unavailable Allergies Active Allergy Reactions Criticality Noted Date Comments Morphine 03/02/2020 Nsaids (Non-Steroidal Anti-Inflammatory Drug) 03/02/2020 Metaxalone Anaphylaxis High 03/02/2020 Terconazole Hives,Other (See Comments) 07/26/2018 Venlafaxine High 04/01/2019 Bleeding/easily bruising Bleeding/easily bruising Medications ondansetron (ZOFRAN) 4 MG tablet Take 4 mg by mouth every 8 (eight) hours as needed for nausea. Active oxyCODONE HCl 10 mg Tab Take 5 mg by mouth every 4 (four) hours as needed. Active clonazePAM (KLONOPIN) 0.5 MG tablet Take 0.5 mg by mouth 2 (two) times a day as needed for anxiety. Active pyridoxine, vitamin B6, (B-6) 100 MG tablet Take 100 mg by mouth daily. Active ergocalciferol, vitamin D2, (VITAMIN D2 ORAL) Take by mouth. Active erenumab-aooe (AIMOVIG AUTOINJECTOR SUBQ) Inject under the skin. Active estradioL (CLIMARA) 0.05 mg/[address] 1 patch onto the skin once a week. 12 patch 1 08/20/2020 Active Active Problems Problem Noted Date Diagnosed Date Nephrolithiasis 03/02/2020 Overview (03/02/2020): calcium phosphorus Menopausal and perimenopausal disorder 0 Assessment & Plan (08/20/2020 9:34 AM EST): Noting headaches, hot flashes this past year or so and intermittant menses Her periods are q28 days currently based on taking the estradiol patch for 3 weeks then one week off (She has been cutting them in half to make them last longer). Last period was Jul 30, before that was June. Has not bled yet in August. Notes acne in the week before a period. Notes that first two days of period are more heavy than they used to be; however the rest of the period is normal and lasts a total of 6-7 days with no intermenstrual bleeding. We discuss the risk of hyperplasia/cancer with unopposed estrogen; however as she is having regular cycles, this should not be the case as she should be creating her own progestin. I ask her to closely monitor her cycles, and report any unscheduled bleeding or changes in bleeding pattern that might indicate a loss of natural hormones/progestin, as then we should consider either ultrasound/biopsy, or adding in progestin. Option for prometrium 200mg for10 days of each cycle is discussed, however this may lead to irregular bleeding as it would be competing with her natural cycles. 30minutes of patient care, counseling, and reviewing records. Intraductal papilloma of left breast 04/03/2017 Calcium kidney stones 07/27/2014 Medullary sponge kidney 11/24/2013 Overview (03/02/2020): [facility] lab fax # is [phone]. ESWL right lower pole 04/16/14(two 6mm remain); L ESWL 08/2014, 7mm remains; L laser lithotripsy 12/03/14 of Reynaldo's plaque w stent removal 12/07/14 severe pain [facility] lab fax # is [phone]. ESWL right lower pole 04/16/14(two 6mm remain); L ESWL 08/2014, 7mm remains; L laser lithotripsy 12/03/14 of Reynaldo's plaque w stent removal 12/07/14 severe pain Family History Medical History Relation Comments Adrenal disorder Father Heart disease Father Kidney disease Father Prostate cancer Father No Known Problems Maternal Grandfather No Known Problems Maternal Grandmother Dementia Mother Hyperlipidemia Mother Multiple sclerosis Mother No Known Problems Paternal Grandfather Relation Status Comments Father Maternal Grandfather Maternal Grandmother Mother Paternal Grandfather Paternal Grandmother Social History Tobacco Use Types Packs/Day Years Used Date Smoking Tobacco: Never Smokeless Tobacco: Never Alcohol Use Standard Drinks/Week Comments Not Currently 0 (1 standard drink = 0.6 oz pur e alcohol) Education Answer Date Recorded Are you interested in more education? Not on olvin e 12/08/2022 Are you concerned about learning? Not on file 12/08/2022 No 12/08/2022 No 12/08/2022 Digital Access Answer Date Recorded No 01/09/2023 No 01/09/2023 Reliable internet access at home? Not on file 01/09/2023 Device with a working camera? Not on file Comments No Sex and Gender Information Value Date Recorded Sex Assigned at Not on file Legal Sex Female 4:18 PM EDT Gender Identity Not on file Sexual Orientation Not on file Plan of Treatment Health Maintenance Due Date Last Done Comments LIPID PANEL 1970 DEPRESSION SCREENING 1982 HEPATITIS C SCREENING 1988 HIV ONE-TIME SCREENING (18-65 YEARS) 1988 PAP SMEAR 1991 MAMMOGRAM 2010 COLOGUARD 2015 COLONOSCOPY 2015 COLORECTAL CANCER SCREENING 2015 FIT TEST 2015 FOBT 2015 SIGMOIDOSCOPY 2015 VIRTUAL COLONOSCOPY 2015 PNEUMOCOCCAL VACCINES (50+ years) (2 of 2 - PCV) 2020 07/30/2017 ZOSTER VACCINES (1 of 2) 2020 Adult Td,Tdap Booster 06/22/2024 06/22/2014 INFLUENZA VACCINE (#1) 2025 , 06/01/2017, 06/13/2016, Additional history exists COVID-19 VACCINE (2 - 2024- season) 2025 08/16/2020 RSV VACCINE (1 - 1-dose 75+ series) 2045 SMOKING STATUS SCREENING (Once After 26 Yrs) Completed 08/20/2020 HEPATITIS A VACCINES Aged Out No long er eligible based on patient's age to complete this topic HIB VACCINES Aged Out No longer eligi ble based on patient's age to complete this topic MENINGOCOCCAL VACCINES (ACWY) Aged Out No longer eligible based on patient's age to complete this topic MENINGOCOCCAL VACCINES (B) Aged Out N o longer eligible based on patient's age to complete this topic Medical Devices Not on file Insurance S Care Teams Dirt Supervisor Relationship Specialty Start Date End Date Tati Pedroza MD PCP - General Internal Medicine 02/27/20 Additional Source Comments The information contained in this document represents components of the legal health record. It is not the complete legal health record.[facility]
--- OUTSIDE RECORDS SUMMARY | 2025-05-29 11:02 | XMS_ITS | Clinical Summary ---
Author Organization [facility], Address [address] [place] [address] [place] [address] Phone Care Team Providers Care Teacher Dancing Name Role Phone Yasir Abel Primary Care Provider [phone] Allergies Active Allergy Reactions Criticality Noted Date Comments Metaxalone Other (see comments) 09/19/2012 (metaxalone is Skelaxin, a muscle relaxer) (metaxalone is Skelaxin, a muscle relaxer) Morphine Other (see comments) Medium 04/18/2014 Immediate hives after IV morphine in [facility] Immediate hives after IV morphine in [facility] Nsaids Other (see comments) 09/19/2012 Terconazole Other (see comments) 07/26/2018 Venlafaxine High 04/01/2019 Bleeding/easily bruising Medications clonazePAM (KlonoPIN) 1 MG tablet Take 0.5 tablets by mouth 2 (two) times a day Active Aimovig 70 MG/ML solution auto-injector INJECT 70 MG UNDER THE SKIN EVERY 30 (THIRTY) DAYS 1 pen 3 10/16/19 21 Active Ubrogepant (Ubrelvy) 50 MG tablet Take 50 mg by mouth 1 (one) time daily 30 minutes before a meal 30 tablet 5 12/14/19 21 Active Rimegepant Sulfate 75 MG tablet dispersible Take 75 mg by mouth every other day 45 tablet 3 05/23/20 22 Active propranolol (INDERAL) 40 MG tablet Take 20 mg by mouth in the morning and 20 mg in the evening. 10/10/19 24 Active clonazePAM (KlonoPIN) 0.25 MG dispersible tablet Take 0.25 mg by mouth at night if needed 10/02/19 24 Active ondansetron (ZOFRAN) 4 MG tablet Take 4 mg by mouth every 12 (twelve) hours if needed 08/03/20 23 Active pantoprazole (Protonix) 20 MG EC tabletIndicatio ns:Nephrolithia sis,Medullary sponge kidney Take 1 tablet (20 mg total) by mouth 1 (one) time each day before breakfast Do not crush, chew, or split. 90 tablet 3 05/28/20 25 026 Active potassium citrate 10 MEQ (1080 MG) CR tabletIndicatio ns:Nephrolithia sis,Medullary sponge kidney Take 1 tablet (10 mEq total) by mouth in the morning and 1 tablet (10 mEq total) at noon and 1 tablet (10 mEq total) in the evening. Take with meals. Do not crush, chew, or split. 270 tablet 3 05/28/20 25 026 Active Sod Citrate-Citric Acid (Oracit) 490-640 MG/5ML solution Take 15 mL by mouth 2 (two) times a day 1800 mL 08/22/19 23 025 Discontinued Hospital, Clinic, or Other Facility Administered Medication Ordered Dose Route Frequency Start Date End Date Status iron sucrose (VENOFER) injection 200 mgIndications:Iron deficiency anemia, not otherwise specified,Chronic kidney disease, stage 2 (mild) 200 mg IV Once as needed 09/23/2020 Active Active Problems Problem Noted Date Diagnosed Date Other iron deficiency anemia 05/23/2022 Chronic kidney disease, stage 2 (mild) 2 COVID-19 07/25/2021 Hypercalciuria Iron deficiency anemia Loin pain-hematuria syndrome Medullary sponge kidney Nephrolithiasis Overview (09/08/2019): calcium phosphorus Encounters Date Type Department Care Team Description 05/28/2025 4:00 PM EDT Office Visit [facility], [address] [address] Yovani Aranda DO Nephrolithiasis (Primary Dx); Medullary sponge kidney from Last 3 Months Immunizations Immunization Administration Dates Next Due DT 12/23/2001 DTaP 12/23/2001 Influenza TIV (IM) 06/13/2016, 5,06/22/2014,2013 Influenza Whole 06/24/2008 Influenza, MDCK, Quadrivalen t, with preservative 06/01/2017 Influenza, Quadrivalent, Pre servative Free 05/10/2020 Influenza, Unspecified 05/16/2021,05/12/2020, PPD Test 06/22/2014 Pfizer SARS-COV-2 05/16/2021,09/06/2020,08/16/19 21 Tdap 06/22/2014 Family History Medical History Relation Comments Cancer Father prostate Coronary artery disease Father and resp arrest Heart disease Father Hypertension Father Prostate cancer Father Coronary artery disease Mother Relation Status Comments Father Mother Social History Tobacco Use Types Packs/Day Years Used Date Smoking Tobacco: Never Tobacco Cessation:Counseling Given: Not Answered Alcohol Use Standard Drinks/Week Comments No 0 (1 standard drink = 0.6 oz pur e alcohol) Comments Unknown Sex and Gender Information Value Date Recorded Sex Assigned at Not on file Legal Sex Female 4:37 PM EST Gender Identity Not on file Sexual Orientation Not on file Last Filed Vital Signs Vital Sign Reading Time Taken Comments Blood Pressure 128/80 05/28/2025 4:48 PM EDT Pulse 74 05/28/2025 4:48 PM EDT Temperature - - Respiratory Rate - - Oxygen Saturation - - Inhaled Oxygen Concentration - - Weight 56.2 kg (124 lb) 01/12/2020 10:30 AM EDT Height 167.6 cm (5' 6 ) 04/28/2019 12:00 PM EDT Body Mass Index 20.01 04/28/2019 12:00 PM EDT Plan of Treatment Health Maintenance Due Date Last Done Comments Breast Cancer Screening 1970 Hepatitis B Vaccine (1 of 3 - 19+ 3-dose series) 1989 Pneumococcal Vaccine: 50+ Ye ars (2 of 2 - PCV) 07/30/2018 07/30/2017 Colorectal Cancer Screening: Annual FOBT 2019 Colorectal Cancer Screening: Colonoscopy 2019 Colorectal Cancer Screening: Sigmoidoscopy 2019 Influenza Vaccine (#1) 2025 1, 05/12/2020, 05/10/2020, Additional history exists Pneumococcal Vaccine: Peds ( 0 to 5 Years) and At-Risk Patients (6 to 49 Years) Discontinued 07/30/[address] [facility] Care Teams Teacher Dancing Relationship Specialty Start Date End Date Yasir Abel [address] [place] [id number] PCP - General Internal Medicine 08/22/21
--- OUTSIDE RECORDS SUMMARY | 2025-05-29 11:02 | XMS_ITS | Encounter Summary ---
Author Organization [facility], Address [address] [place] [address] Phone Care Team Providers Care Stitching Department Supervisor Name Role Phone Yasir Abel Primary Care Provider [phone] Encounter Details Date Type Department Care Team (Late st Contact Info) Description 12/05/2023 Documentation Only [facility], [address] [place] [address] José Miguel [place], [place] [address] [place] [address] Social History Tobacco Use Types [...] on filedocumented in this encounter Care Teams Stitching Department Supervisor Relationship Specialty Start Date End Date Yasir Abel [address] [place] [id number] PCP - General Internal Medicine 08/22/21 documented as of this encounter
--- OUTSIDE RECORDS SUMMARY | 2025-05-29 11:02 | XMS_ITS | Encounter Summary ---
Author Organization [facility], Address [address] [place] [address] Phone Care Team Providers Care Whiteprinting Machine Operator Name Role Phone Yasir Abel Primary Care Provider [phone] Encounter Details Date Type Department Care Team (Late st Contact Info) Description 08/15/2022 Documentation Only [facility], [address] [place] [address] Demetrice Caldwell [address] [place] [address] Social History Tobacco Use Types [...] on filedocumented in this encounter Care Teams Whiteprinting Machine Operator Relationship Specialty Start Date End Date Yasir Abel [address] [place] [id number] PCP - General Internal Medicine 08/22/21 documented as of this encounter
--- OUTSIDE RECORDS SUMMARY | 2025-05-29 11:02 | XMS_ITS | Encounter Summary ---
Author Organization [facility], Address [address] [place] [address] Phone Care Team Providers Care Ticket Worker Name Role Phone Yasir Abel Primary Care Provider [phone] Encounter Details Date Type Department Care Team (Late st Contact Info) Description 11/14/2023 Documentation Only [facility], [address] [place] [address] José Miguel [place], [place] [address] [place] [address] Social History Tobacco Use Types [...] on filedocumented in this encounter Care Teams Ticket Worker Relationship Specialty Start Date End Date Yasir Abel [address] [place] [id number] PCP - General Internal Medicine 08/22/21 documented as of this encounter
--- OUTSIDE RECORDS SUMMARY | 2025-05-29 11:02 | XMS_ITS | Clinical Summary ---
Author Organization [facility] Address [address] [place] [address] Care Team Providers Care Firebrick And Refractory Tile Repairer Name Role Phone Tati Pedroza MD Primary Care Provider [phone] Allergies Active Allergy Reactions Criticality Noted Date Comments Metaxalone Other (See Comments) 09/19/2012 (metaxalone is Skelaxin, a muscle relaxer) Morphine Other (See Comments) Medium 04/18/2014 Immediate hives after IV morphine in [facility] Nsaids Other (See Comments) 09/19/2012 Terconazole Other (See Comments) 07/26/2018 Medications Medication Sig Dispensed Refills Start Date End Date Status hydroquinone 4 % cream Apply topically 2 (two) times a day. 0 Active venlafaxine (EFFEXOR) 75 MG tablet Take 75 mg by mouth 2 (two) times a day. 0 Active oxyCODONE HCl 10 MG TABS Take by mouth. 0 Active tamsulosin (FLOMAX) 0.4 MG CAPS Take 0.4 mg by mouth daily. 0 Active Multiple Vitamin (MULTI-VITAMIN DAILY PO) Take by mouth. 0 Active Iron, Ferrous Sulfate, 142 (45 Fe) MG TBCR Take by mouth. 0 Active clonazePAM (KlonoPIN) 1 MG tablet Take 1 mg by mouth 2 (two) times a day as needed for anxiety. 0 Active ondansetron (ZOFRAN) 4 MG tablet Take by mouth. 0 Active Vitamin D, Ergocalciferol, 2000 units CAPS Take by mouth. 0 Active Cyanocobalamin (VITAMIN B-12) 100 MCG TABS Take by mouth. 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 ESWL right lower pole 04/16/14(two 6mm remain); L ESWL 08/2014, 7mm remains; L laser lithotripsy 12/03/14 of Reynaldo's plaque w stent removal 12/07/14 severe pain Anxiety 09/19/2012 Chronic migraine 09/19/2012 Family history of ischemic heart disease (IHD) 0 09/19/2012 Vitamin D deficiency 09/19/2012 Family History Medical History Relation Name Comments Hypertension Brother No Sig Med Hx Daughter 1 No Sig Med Hx Daughter 2 Heart failure Father Kidney failure Father Dialysis - Po lcsystic kidney disease Myelodysplastic syndrome Father 5q deletion Prostate cancer Father Heart disease Mother Other Sister No contact Relation Name Status Comments Brother Alive Daughter 1 Alive Daughter 2 Alive Father Mother Sister Alive Social History Tobacco Use Types Packs/Day Years Used Date Smoking Tobacco: Never Smokeless Tobacco: Never Alcohol Use Standard Drinks/Week Comments Yes 0 (1 standard drink = 0.6 oz pur e alcohol) occasional Sex and Gender Information Value Date Recorded Sex Assigned at Not on file Gender Identity Not on file Sexual Orientation Not on file Last Filed Vital Signs Vital Sign Reading Time Taken Comments Blood Pressure 125/85 03/28/2019 3:21 PM EDT Pulse 94 02/28/2019 3:22 PM EDT Temperature 36.8 C (98.3 F) 03/28/2019 3:21 PM EDT Respiratory Rate - - Oxygen Saturation - - Inhaled Oxygen Concentration - - Weight 60.7 kg (133 lb 12.8 oz) 03/28/2019 3:21 PM EDT Height 167.6 cm (5' 6 ) 03/28/2019 3:21 PM EDT Body Mass Index 21.6 03/28/2019 3:21 PM EDT Plan of Treatment Health Maintenance Due Date Last Done Comments Hepatitis B Vaccines (1 of 3 - 3-dose series) 1970 Hepatitis C Screening 1970 COVID-19 Vaccine (#1) 1975 Pneumococcal Vaccine (1 of 2 - PCV) 1976 Depression Screening 1982 Preventative Health Evaluation 1988 Shingrix-Zoster Vaccine (1 of 2) 1989 Cervical Cancer Screening (Pap Smear) 1991 Colon Cancer Screening (Colonoscopy) 2015 Breast Cancer Screening (Mammogram) 2020 DTap / Tdap / Td (2 - Td or Tdap) 06/22/2024 06/22/2014 Influenza Vaccine (#1) 2025 7, 06/13/2016, 05/17/2015, Additional history exists RSV Ped < 20 months Aged Out No longe r eligible based on patient's age to complete this topic Care Teams Firebrick And Refractory Tile Repairer Relationship Specialty Start Date End Date Tati Pedroza MD PCP - General Internal Medicine 02/26/19
--- OUTSIDE RECORDS SUMMARY | 2025-05-29 11:02 | XMS_ITS | Clinical Summary ---
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 04/08/2025 10:40 AM EDT [facility] Urine Urine specimen obtained by clean catch procedure / Unknown Non-blood Collection / Unknown 04/07/2025 10:25 AM EDT 04/07/2025 1:16 PM EDT us Vladimir Keating NP LAB MICROBIOLOGY - GENERAL ORD ERABLES Final Result [facility] [address] [place] [address], [place] [phone] * Thyroid stimulating hormone with reflex to free t4 and free t3 (04/07/2025 10:09 AM EDT) [facility] TSH 2.01 0.40 - 4.00 mcIU/mL LAB CHEMISTRY METHOD 04/07/2025 7:50 PM EDT [facility] Blood Venous blood specimen / Unknown Venipuncture / Unknown 04/07/2025 10:09 AM EDT 04/07/2025 10:09 AM EDT Tesha Smart TRAIN RESERVATION CLERK LAB BLOOD ORDERABLES Final R esult [facility] [address] [place] [address], [place] [phone] * (ABNORMAL) Lipid panel with reflex to direct LDL (04/07/2025 10:09 AM EDT) [facility] Cholesterol 208(H) 0 - 200 mg/dL LAB CHEMISTRY METHOD 04/07/2025 7:32 PM EDT [facility] Triglycerides 72 0 - 150 mg/dL LAB CHEMISTRY METHOD 04/07/2025 7:32 PM EDT [facility] HDL 51 >=40 mg/dL LAB CHEMISTRY METHOD 04/07/2025 7:32 PM EDT [facility] LDL Calculated 143(H) 0 - 100 mg/dL LAB CHEMISTRY METHOD 04/07/2025 7:32 PM EDT [facility] Comment:Estimated LDL Calcul ated using equation: Total cholesterol - HDL cholesterol - (Triglycerides/5) VLDL Cholesterol Bahman 14.4 mg/dL LAB CHEMISTRY METHOD 04/07/2025 7:32 PM EDT [facility] Non HDL Chol. (LDL+VLDL) 157(H) <145 mg/dL LAB CHEMISTRY METHOD 04/07/2025 7:32 PM EDT [facility] Chol/HDL Ratio 4.1 0.0 - 4.4 LAB CHEMISTRY METHOD 04/07/2025 7:32 PM EDT [facility] Blood Venous blood specimen / Unknown Venipuncture / Unknown 04/07/2025 10:09 AM EDT 04/07/2025 10:09 AM EDT Vladimir Keating TRAIN RESERVATION CLERK LAB BLOOD ORDERABLES Final Res ult [facility] [address] [place] [address], * (ABNORMAL) CBC auto differential (04/07/2025 10:09 AM EDT) WBC 4.0(L) 4.8 - 10.8 K/mcL LAB HEMETOLOGY METHOD 04/07/2025 12:25 PM EDT [facility] RBC 4.20 3.80 - 4.80 M/mcL LAB HEMETOLOGY METHOD 04/07/2025 12:25 PM EDT [facility] Hemoglobin 12.3 11.5 - 16.0 g/dL LAB HEMETOLOGY METHOD 04/07/2025 12:25 PM EDT [facility] Hematocrit 37.1 35.0 - 47.0 % LAB HEMETOLOGY METHOD 04/07/2025 12:25 PM EDT [facility] MCV 88.5 79.0 - 98.0 FL LAB HEMETOLOGY METHOD 04/07/2025 12:25 PM EDT [facility] MCH 29.4 27.0 - 32.0 pcg LAB HEMETOLOGY METHOD 04/07/2025 12:25 PM EDT [facility] MCHC 33.2 32.0 - 37.0 g/dL LAB HEMETOLOGY METHOD 04/07/2025 12:25 PM EDT [facility] RDW 12.2 11.0 - 15.0 % LAB HEMETOLOGY METHOD 04/07/2025 12:25 PM EDT [facility] Platelets 277 130 - 400 K/mcL LAB HEMETOLOGY METHOD 04/07/2025 12:25 PM EDT [facility] MPV 10.9 7.0 - 11.0 FL LAB HEMETOLOGY METHOD 04/07/2025 12:25 PM EDT [facility] NRBC 0.0 <1.0 % LAB HEMETOLOGY METHOD 04/07/2025 12:25 PM EDT [facility] NRBC Absolute 0.00 <0.10 K/mcL LAB HEMETOLOGY METHOD 04/07/2025 12:25 PM [facility] Neutrophils Relative 54.8 % [facility] Lymphocytes Relative 36.5 % LAB HEMETOLOGY METHOD 04/07/2025 12:25 PM EDT [facility] Monocytes Relative 7.3 % LAB [facility]EMETOLOGY [facility] Eosinophils Relative 0.3 % LAB HEMETOLOGY METHOD 04/07/2025 12:25 PM [facility] Basophils Relative 0.8 % LAB HEMETOLOGY METHOD 04/07/2025 12:25 PM [facility] Immature Granulocytes Relative 0.3 % LAB HEMETOLOGY METHOD 04/07/2025 12:25 PM [facility] Neutrophils Absolute 2.17 1.50 - 7.00 K/mcL LAB HEMETOLOGY METHOD 04/07/2025 12:25 PM [facility] Lymphocytes Absolute 1.44 1.00 - 5.00 K/mcL LAB HEMETOLOGY METHOD 04/07/2025 12:25 PM [facility] Monocytes Absolute 0.29 0.20 - 1.00 K/mcL LAB HEMETOLOGY METHOD 04/07/2025 12:25 PM [facility] Eosinophils Absolute 0.01 0.00 - 0.50 K/mcL LAB HEMETOLOGY METHOD 04/07/2025 12:25 PM [facility] Basophils Absolute 0.03 0.00 - 0.20 K/mcL LAB HEMETOLOGY METHOD 04/07/2025 12:25 PM [facility] Immature Granulocytes Absolute 0.01 0.00 - 0.03 K/mcL LAB HEMETOLOGY METHOD 04/07/2025 12:25 PM EDT [facility] Blood Venous blood specimen / Unknown Venipuncture / Unknown 04/07/2025 10:09 AM EDT 04/07/2025 10:09 AM EDT Vladimir Keating TRAIN RESERVATION CLERK LAB BLOOD ORDERABLES Final Res ult [facility] [address] [place] [address], [place] [phone] * (ABNORMAL) Comprehensive metabolic panel (04/07/2025 10:09 AM EDT) Sodium 139 133 - 145 mmol/L LAB CHEMISTRY METHOD 04/07/2025 7:32 PM [facility] Potassium 4.2 3.5 - 5.5 mmol/L LAB CHEMISTRY METHOD 04/07/2025 7:32 PM [facility] Chloride 106 96 - 110 mmol/L LAB CHEMISTRY METHOD 04/07/2025 7:32 PM [facility] CO2 29 21 - 32 mmol/L LAB CHEMISTRY METHOD 04/07/2025 7:32 PM [facility] Anion Gap 4 3 - 11 LAB CHEMISTRY METHOD 04/07/2025 7:32 PM [facility] Glucose 91 70 - 100 mg/dL LAB CHEMISTRY METHOD 04/07/2025 7:32 PM [facility] BUN 12 5 - 25 mg/dL LAB CHEMISTRY METHOD 04/07/2025 7:32 PM [facility] Creatinine 1.14(H) 0.50 - 1.10 mg/dL LAB CHEMISTRY METHOD 04/07/2025 7:32 PM [facility] eGFR 57(L) >=60 mL/min/1. 73m2 LAB CHEMISTRY METHOD 04/07/2025 7:32 PM T [facility] Comment:Calculation based on the Chronic Kidney Disease Epidemiology Collaboration (CKD-EPI) equation refit without adjustment for race. BUN/Creatinine Ratio 10.5 LAB CHEMISTRY METHOD 04/07/2025 7:32 PM [facility] Calcium 9.3 8.5 - 10.5 mg/dL LAB CHEMISTRY METHOD 04/07/2025 7:32 PM [facility] AST (SGOT) 23 10 - 42 unit/L LAB CHEMISTRY METHOD 04/07/2025 7:32 PM [facility] ALT (SGPT) 20 10 - 60 unit/L LAB CHEMISTRY METHOD 04/07/2025 7:32 PM [facility] Alkaline Phosphatase 71 42 - 121 unit/L LAB CHEMISTRY METHOD 04/07/2025 7:32 PM [facility] Total Protein 7.1 6.0 - 8.0 g/dL LAB CHEMISTRY METHOD 04/07/2025 7:32 PM [facility] Albumin 4.1 3.2 - 5.0 g/dL LAB CHEMISTRY METHOD 04/07/2025 7:32 PM [facility] Total Bilirubin 0.5 0.0 - 1.4 mg/dL LAB CHEMISTRY METHOD 04/07/2025 7:32 PM [facility] Blood Venous blood specimen / Unknown Venipuncture / Unknown 04/07/2025 10:09 AM EDT 04/07/2025 10:09 AM EDT us Tesha Smart TRAIN RESERVATION CLERK LAB BLOOD ORDERABLES Final R esult [facility] [address] [place] [address], * Cologuard?? colon cancer screening (10/13/2024 10:20 PM EST) COLOGUARD Negative Negative [facility] Comment: NEGATIVE TEST RESULT. A negative Cologuard result indicates a low likelihood that a colorectal cancer (CRC) or advanced adenoma (adenomatous polyps with more advanced pre-malignant features) is present. The chance that a person with a negative Cologuard test has a colorectal cancer is less than 1 in 1500 (negative predictive value >99.9%) or has an advanced adenoma is less than 5.3% (negative predictive value 94.7%). These data are based on a prospective cross-sectional study of 10,000 individuals at average risk for colorectal cancer who were screened with both Cologuard and colonoscopy. (Charla Shannon. et al, N Engl J Med 2014;370(14):9877-6395) The normal value (reference range) for this assay is negative. COLOGUARD RE-SCREENING RECOMMENDATION: Periodic colorectal cancer screening is an important part of preventive healthcare for asymptomatic individuals at average risk for colorectal cancer. Following a negative Cologuard result, the [place] [employer] and U.S. Multi-Society Task Force screening guidelines recommend a Cologuard re-screening interval of 3 years. References: [place] [employer] Guideline for Colorectal Cancer Screening: https://www.cancer.org/cancer/nuoau-dklvrx-tpcxeg/ujfadfqdf-lzkcumpfu-zyirxwj/ac s-rec ommendations.html.; Jose J FLOWERS, Jorje LOPEZ, Phil StewartK, Colorectal Cancer Screening: Recommendations for Physicians and Patients from the U.S. Multi-Society Task Force on Colorectal Cancer Screening , Am J Gastroenterology 2017; 112:6643-7811. TEST DESCRIPTION: Composite algorithmic analysis of stool DNA-biomarkers with hemoglobin immunoassay. Quantitative values of individual biomarkers are not reportable and are not associated with individual biomarker result reference ranges. Cologuard is intended for colorectal cancer screening of adults of either sex, 45 years or older, who are at average-risk for colorectal cancer (CRC). Cologuard has been approved for use by the U.S. FDA. The performance of Cologuard was established in a cross sectional study of average-risk adults aged 50-84. Cologuard performance in patients ages 45 to 49 years was estimated by sub-group analysis of near-age groups. Colonoscopies performed for a positive result may find as the most clinically significant lesion: colorectal cancer [4.0%], advanced adenoma (including sessile serrated polyps greater than or equal to 1cm diameter) [20%] or non- advanced adenoma [31%]; or no colorectal neoplasia [45%]. These estimates are derived from a prospective cross-sectional screening study of 10,000 individuals at average risk for colorectal cancer who were screened with both Cologuard and colonoscopy. (Charla Ramires et al, N Engl J Med 2014;370(14):5742-6816.) Cologuard may produce a false negative or false positive result (no colorectal cancer or precancerous polyp present at colonoscopy follow up). A negative Cologuard test result does not guarantee the absence of CRC or advanced adenoma (pre-cancer). The current Cologuard screening interval is every 3 years. ([employer] [employer] and U.S. Multi-Society Task Force). Cologuard performance data in a 10,000 patient pivotal study using colonoscopy as the reference method can be accessed at the following location: www.eÓtica/results. Additional description of the Cologuard test process, warnings and precautions can be found at www.cologuard.com. Stool 10/13/2024 10:2 0 PM EST 10/15/2024 10:42 AM EST Yasir Caputo MD LAB MOLECULAR DIAGNOSTICS ORDERABLES Final Result [facility] [address] [place] [address] [facility] [address] [place] [address] * Hepatitis C Screening (07/27/2023) Pathologist [facility] Hepatitis C Screening Abstracted Historical Provider HEALTH MAINTENANCE Final Result * Cervical Cancer Screening: HPV (06/15/2021) [facility] Cervical Cancer Screening: HPV Negative, Abstracted Historical Provider HEALTH MAINTENANCE Final Result * HIV Screening (08/26/2014) Pathologist [facility] HIV Screening Abstracted us Historical Provider HEALTH MAINTENANCE Final Result from Last 3 Months or Most Recently Relevant to Health Maintenance Insurance [facility] [address] [place] [id number] Care Teams 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
== END 2025-05-29 10:50 | disposition home or self-care (01) ==
LOC: HO.HUSH 09:38
PROVIDERS: PCP Internal Medicine; Visit Provider Urology
DX: Q61.5 Medullary cystic kidney (principal); Z13.9 Encounter for screening, unspecified
CPT/HCPCS: 99214; G2211

== ENCOUNTER → 2025-05-29 09:37 | Outpatient (BNVA) | payer OTHER, SELFPAY | PROVIDERS: PCP Internal Medicine; Visit Provider Urology | DX: Q61.5 Medullary cystic kidney (principal) | CPT/HCPCS: 81003 ==